=== PATIENT | female | born 2000 | race African-American/Black ===

== ENCOUNTER 2018-11-07 09:04 | Emergency (ER) | payer MEDICAID ==
[~2018-11-07] VITALS: Ht 170.2 cm; Wt 77.8 kg
--- NOTE | 2018-11-07 09:30 | NUR ---
PT HERE TODAY FOR GENERALIZED PAIN, MOSTLY LOCATED IN L AND R LOWER ABDOMEN. STATES IT HAS BEEN GOING ON FOR A COUPLE OF DAYS. N/V FOR THE PAST FEW DAYS. PT AMBULATED WITH STEADY GAIT TO BATHROOM AT THIS TIME TO PROVIDE URINE SAMPLE. NOW RESTING ON GURNEY. [place]. BrayolaS. LAB AT BEDSIDE.
[2018-11-07 09:45] LABS: BASOPHILS # (AUTO) 0.04 x10^3/uL (0-0.3); BASOPHILS % (AUTO) 1 % (0-1); EOSINOPHILS # (AUTO) 0.03 x10^3/uL (0-0.8); EOSINOPHILS % (AUTO) 0 % (1-7); LYMPHOCYTES # (AUTO) 2.94 x10^3/uL (1-6.1); LYMPHOCYTES % (AUTO) 46 % (22-44); MD NO; MEAN CORPUSCULAR HEMOGLOBIN 32.5 pg (27.0-34.8); MEAN CORPUSCULAR HGB CONC 32.9 g/dL (32.4-35.8); MEAN CORPUSCULAR VOLUME 98.8 fL (80-100); MEAN PLATELET VOLUME 8.3 fL (7.4-10.4); MONOCYTES # (AUTO) 0.37 x10^3/uL (0-1.4); MONOCYTES % (AUTO) 6 % (2-9); NEUTROPHILS # (AUTO) 3.09 x10^3/uL (1.8-8.0); NEUTROPHILS % (AUTO) 48 % (42-75); PLATELET COUNT 278 x10^3/uL (130-400); RED BLOOD COUNT 3.92 x10^6/uL (3.82-5.3); RED CELL DISTRIBUTION WIDTH 13.2 % (9.6-15.2)
[2018-11-07 09:47] LABS: MICROSCOPIC NOT IND
[2018-11-07 09:55] LABS: CULTURE INDICATED? NO
[2018-11-07 09:57] LABS: ALANINE AMINOTRANSFERASE 20 U/L (12-78); ALBUMIN 3.9 g/dL (3.4-5.0); ANION GAP 7 mmol/L (5-15); CALCIUM 8.9 mg/dL (8.5-10.1); CHLORIDE 108 mmol/L (98-107); CREATININE 0.84 mg/dL (0.55-1.02)
[2018-11-07 10:01] LABS: ALKALINE PHOSPHATASE 80 U/L (45-117); BILIRUBIN,TOTAL 0.4 mg/dL (0.2-1.0); TOTAL PROTEIN 7.7 g/dL (6.4-8.2)
--- NOTE | 2018-11-07 10:10 | NUR ---
PT RESTING ON GURDayak WITH LIGHTS OFF. DENIES NEEDS. NADN. VSS. CALL LIGHT IN REACH.
--- NOTE | 2018-11-07 10:23 | NUR ---
PT BEING TAKEN TO RADIOLOGY AT THIS TIME.
--- NOTE | 2018-11-07 10:34 | NUR ---
PT BACK FROM RADIOLOGY AT THIS TIME. RESTING ON GURNEY. CUELLAR
--- NOTE | 2018-11-07 10:36 | NUR ---
PT AMBULATED WITH STEADY GAIT TO BATHROOM. BACK IN ROOM RESTING ON GURNEY NOW. CONNECTED TO MONITOR. VSS. DENIES NEEDS. NADN. CALL LIGHT IN REACH.
[2018-11-07 10:38] VITALS: BP 188/76
--- NOTE | 2018-11-07 11:00 | NUR ---
PT AWARE OF D/C PLAN. GETTING DRESSED NOW.
== END 2018-11-07 11:07 | disposition home or self-care (01) ==
LOC: ED 09:57
DX: R10.32 Left lower quadrant pain (principal); M54.6 Pain in thoracic spine; R11.2 Nausea with vomiting, unspecified; R19.7 Diarrhea, unspecified; R30.0 Dysuria
CPT/HCPCS: 36415; 74021; 80053; 81003; 83690; 84703; 85025; 93005; 99284

== ENCOUNTER 2019-02-28 00:03 | Emergency (ER) | payer MEDICAID ==
[~2019-02-28] VITALS: Ht 170.2 cm; Wt 73.1 kg
[2019-02-28 00:10] VITALS: BP 120/75
--- NOTE | 2019-02-28 01:29 | NUR ---
PT HEARD YELLING "NURSE." PT STATED IS LEAVING, STATED "YOU AREN'T EVEN GOING TO TEST MY URINE AND CALL ME IN THE MORNING WITH THE RESULTS." ATTEMPTED TO EXPLAIN TO PT PROCESS FOR LAB TESTS. PT STATED WAS LEAVING TO GO TO [facility]. ATTEMPTED TO ENCOURAGE PT TO HAVE A SEAT AND WAIT TO BE SEEN BY ERP. PT STATED WAS LEAVING.
== END 2019-02-28 01:32 | disposition left against medical advice (07) ==
LOC: ED 01:26
DX: J11.1 Influenza due to unidentified influenza virus with other respiratory manifestations (principal); Z53.21 Procedure and treatment not carried out due to patient leaving prior to being seen by health care provider